=== PATIENT | female | born 1990 | race African-American/Black ===

== ENCOUNTER 2018-10-28 14:49 | Emergency (ER) | payer OTHER ==
[~2018-10-28] VITALS: Ht 167.6 cm; Wt 108.2 kg
[2018-10-28] MEDS ORDERED: CRYS28TA PO (15:06)
[2018-10-28] MEDS ORDERED: BUSP5TA PO (15:06)
[2018-10-28] MEDS ORDERED: ONDANSETRON 4 MG ORAL DISINTEGRATING TAB (Q0162 PER 1MG) PO ONE (15:45)
[2018-10-28 16:10] LABS: BASO % 0.3 % (0.0-1.0); EOS # 0.1 10^3/uL (0.0-0.50); EOS % 0.9 % (0.0-3.0); HEMATOCRIT 36.2 % (36.0-47.0); HEMOGLOBIN 11.7 g/dl (12.0-15.5); LYMPH # 2.5 10^3/uL (1.5-6.5); LYMPH % 33.9 % (24.0-44.0); MEAN CORPUSCULAR HEMOGLOBIN 27.4 pg (27.0-33.0); MEAN CORPUSCULAR HGB CONC 32.3 g/dl (32.0-36.5); MEAN CORPUSCULAR VOLUME 84.8 fl (80.0-96.0); MONO # 0.4 10^3/uL (0.0-0.8); MONO % 4.7 % (0.0-5.0); NEUTROPHILS # 4.4 10^3/uL (1.8-7.7); NEUTROPHILS % 59.9 % (36.0-66.0); PLATELET COUNT, AUTOMATED 309 10^3/uL (150-450); RED BLOOD COUNT 4.27 10^6/uL (4.00-5.40); WHITE BLOOD COUNT 7.4 10^3/uL (4.0-10.0)
[2018-10-28 16:28] LABS: BLOOD UREA NITROGEN 11 MG/DL (7-18); CALCIUM LEVEL 8.9 MG/DL (8.5-10.1); CARBON DIOXIDE LEVEL 30 MEQ/L (21-32); CHLORIDE LEVEL 105 MEQ/L (98-107); CREATININE FOR GFR 0.83 MG/DL (0.55-1.30); GLOMERULAR FILTRATION RATE > 60.0 (>60); GLUCOSE, FASTING 87 MG/DL (70-100); POTASSIUM SERUM 3.7 MEQ/L (3.5-5.1); SODIUM LEVEL 139 MEQ/L (136-145)
--- NOTE | 2018-10-28 17:31 | REP ---
Clinical: Pelvic pain . Technique: Transabdominal pelvic ultrasound followed by transvaginal examination for better evaluation of the endometrium and adnexa with color Doppler evaluation of the ovaries. Findings: Bladder is unremarkable and measures 7.7 x 3.7 x 4.9 cm . Normal anteverted uterus measures 8.7 x 5.5 x 5.4 cm . The endometrial complex measures 12.7 mm thickness. No discrete uterine or endometrial abnormalities are appreciated. Bilateral ovaries are normal in vascularity without evidence for torsion. Right ovary measures 5.4 x 3.5 x 3.9 cm with 4.5 x 3.2 x 3.0 cm simple likely physiologic cyst; R I = 0.71 . Left ovary measures 3.2 x 1.2 x 1.4 cm; R I = 0.63. Small amount of free fluid in the pelvis is nonspecific. . Impression: 1. 4.5 cm simple right ovarian cyst likely physiologic. Consider reevaluation in 4-6 weeks to evaluate for resolution. 2. Otherwise normal pelvic ultrasound. Electronically Signed by Patrick Felton MD 10/28/2018 05:22 P
[2018-10-28] MEDS ORDERED: ONDA4TAB6 PO (17:47)
[2018-10-28 17:51] VITALS: BP 125/75
--- NOTE | 2018-11-02 14:05 | ED PDOC ---
Post-Departure Follow-Up ft genny myers faxed formal report of pelvic us for fu Martha Barnhart MD Nov 02, 2018 14:05
== END 2018-10-28 17:59 | disposition home or self-care (01) ==
LOC: M ED 14:49
DX: N83.291 Other ovarian cyst, right side (principal); Z79.3 Long term (current) use of hormonal contraceptives
CPT/HCPCS: 36415; 76830; 76856; 80048; 81001; 81025; 85025; 93976; 99284; Q0162